=== PATIENT | female | born 1980 | race Caucasian/White ===

== ENCOUNTER 2020-06-22 12:40 | Emergency (ER) | payer MEDICAID ==
[~2020-06-22] VITALS: Ht 165.1 cm; Wt 102.3 kg
[~2020-06-22 12:40] MED LIST: AZIT250T PO; CYCL-1 PO; HYDR-4383 PO; NITR100C6 PO; ONDA4TAB12 PO; OXYC-134 PO; PHEN-786 PO
[2020-06-22 12:44] VITALS: BP 145/117
[2020-06-22] MEDS ORDERED: methylPREDNISolone sod succ 125mg/2ml vial IV ONE (12:50)
[2020-06-22] MEDS ORDERED: albuterol 2.5 MG/3 ML nebule CONTNEB PRN (12:50)
[2020-06-22] MEDS ORDERED: ALBU6.7H9 INH (13:41)
[2020-06-22] MEDS ORDERED: PRED20TA PO (13:41)
[2020-06-22] MEDS ORDERED: ALB0.5UD IH (14:08)
== END 2020-06-22 14:44 | disposition home or self-care (01) ==
LOC: ER 12:40
DX: J45.901 Unspecified asthma with (acute) exacerbation (principal); K21.9 Gastro-esophageal reflux disease without esophagitis; G89.29 Other chronic pain; F41.9 Anxiety disorder, unspecified; Z90.49 Acquired absence of other specified parts of digestive tract; Z90.710 Acquired absence of both cervix and uterus; Z98.890 Other specified postprocedural states; Z56.0 Unemployment, unspecified; Z88.0 Allergy status to penicillin; Z88.8 Allergy status to other drugs, medicaments and biological substances; Z88.1 Allergy status to other antibiotic agents; Z88.5 Allergy status to narcotic agent; Z79.899 Other long term (current) drug therapy
CPT/HCPCS: 94640; 96374; 99283; J2930; 94760; 99285

== ENCOUNTER 2020-09-01 10:13 | Emergency (ER) | payer MEDICAID ==
[~2020-09-01] VITALS: Ht 162.6 cm; Wt 109.1 kg
[~2020-09-01 10:13] MED LIST changes: +ALBU6.7H9 INH
[2020-09-01 10:30] VITALS: BP 137/109
== END 2020-09-01 12:15 | disposition home or self-care (01) ==
LOC: ER 10:13
DX: J02.9 Acute pharyngitis, unspecified (principal); R05 Cough; R50.9 Fever, unspecified; Z20.828 Contact with and (suspected) exposure to other viral communicable diseases; J45.909 Unspecified asthma, uncomplicated; K21.9 Gastro-esophageal reflux disease without esophagitis; G89.29 Other chronic pain; F41.9 Anxiety disorder, unspecified; Z90.710 Acquired absence of both cervix and uterus; Z90.49 Acquired absence of other specified parts of digestive tract; Z56.0 Unemployment, unspecified; Z88.0 Allergy status to penicillin; Z79.2 Long term (current) use of antibiotics; Z79.899 Other long term (current) drug therapy
CPT/HCPCS: 36415; 87081; 87880; 99283

== ENCOUNTER 2020-10-18 21:22 | Emergency (ER) | payer MEDICAID ==
[~2020-10-18] VITALS: Ht 167.6 cm; Wt 118.2 kg
[2020-10-18 21:38] VITALS: BP 196/121
[2020-10-18 22:13] LABS: URINE HCG NEGATIVE (NEG)
[2020-10-18 22:22] LABS: CLARITY,URINE SLIGHTLY CLOUDY (Clear); COLOR,URINE YELLOW (Yellow); GLUCOSE, URINE NEGATIVE (Neg); KETONES,URINE NEGATIVE (Neg); LEUKOCYTE ESTERASE ,URINE MODERATE (Neg); NITRITES, URINE NEGATIVE (Neg); OCCULT BLOOD,URINE MODERATE (Neg); PROTEIN,URINE TRACE mg/dl (Neg); UROBILINOGEN,URINE 0.2 E.U/dL (0.2-1.0)
[2020-10-18 22:44] LABS: UA COLLECTION TYPE CLN CATCH MIDSTREAM
[2020-10-18] MEDS ORDERED: ACYC400T39 PO (23:01)
[2020-10-18] MEDS ORDERED: LIDO30CR23 TOP (23:01)
[2020-10-18] MEDS ORDERED: LIDOcaine/PRILOcaine 5gm cream TP ONE (23:05)
[2020-10-18 23:51] LABS: BACTERIA,URINE 3+ /HPF (Neg); SQUAMOUS EPITHELIAL CELL,UR MODERATE /LPF (FEW); WBC,URINE TNTC /HPF (0-4)
[2020-10-18 23:53] LABS: TRICHOMONAS,URINE FEW /HPF (NEGATIVE); WBC CLUMPS,URINE MODERATE /HPF (NEGATIVE)
[2020-10-19] MEDS ORDERED: NITR100C6 PO (15:55)
== END 2020-10-18 23:16 | disposition home or self-care (01) ==
LOC: ER 21:23
DX: N39.0 Urinary tract infection, site not specified (principal); R10.2 Pelvic and perineal pain; G89.29 Other chronic pain; F41.9 Anxiety disorder, unspecified; J45.909 Unspecified asthma, uncomplicated; K21.9 Gastro-esophageal reflux disease without esophagitis; Z90.49 Acquired absence of other specified parts of digestive tract; Z90.710 Acquired absence of both cervix and uterus; Z56.0 Unemployment, unspecified; Z88.0 Allergy status to penicillin; Z79.2 Long term (current) use of antibiotics; Z79.899 Other long term (current) drug therapy
CPT/HCPCS: 81001; 81025; 87088; 87252; 99283

== ENCOUNTER 2021-03-22 06:04 | Emergency (ER) | payer MEDICAID ==
[~2021-03-22] VITALS: Ht 165.1 cm; Wt 129.7 kg
[~2021-03-22 06:04] MED LIST changes: +LIDO30CR TOP
[2021-03-22 06:08] VITALS: BP 159/95
[2021-03-22] MEDS ORDERED: acetaminophen 325mg tablet PO ONE (06:35)
[2021-03-22] MEDS ORDERED: ibuprofen tablet 400 MG TABLET PO ONE (06:35)
[2021-03-22] MEDS ORDERED: loratadine 10mg tablet PO ONE (06:35)
== END 2021-03-22 07:37 | disposition home or self-care (01) ==
LOC: ER 06:05
DX: J06.9 Acute upper respiratory infection, unspecified (principal); Z20.822 Contact with and (suspected) exposure to COVID-19; F41.9 Anxiety disorder, unspecified; K21.9 Gastro-esophageal reflux disease without esophagitis; J45.909 Unspecified asthma, uncomplicated; Z56.0 Unemployment, unspecified; Z88.0 Allergy status to penicillin; Z79.899 Other long term (current) drug therapy
CPT/HCPCS: 87635; 99284; C9803; 99283

== ENCOUNTER 2023-03-16 19:34 | Emergency (ER) | payer MEDICAID ==
[~2023-03-16] VITALS: Ht 162.6 cm; Wt 138.0 kg
[~2023-03-16 19:34] MED LIST changes: +ALBU6.7H14 INH; -ALBU6.7H9 INH
[2023-03-16 21:32] LABS: CLARITY,URINE SLIGHTLY CLOUDY (Clear); COLOR,URINE ORANGE (Yellow); UA COLLECTION TYPE CLN CATCH MIDSTREAM
[2023-03-16 21:33] VITALS: BP 178/116
[2023-03-16 21:42] LABS: BACTERIA,URINE 1+ /HPF (Neg); MUCUS STRANDS FEW /LPF (Neg); RBC,URINE 50-100 /HPF (0-2); SQUAMOUS EPITHELIAL CELL,UR MANY /LPF (FEW); WBC,URINE 50-100 /HPF (0-4)
[2023-03-16] MEDS ORDERED: sulfamethoxazole/trimethoprim DS (800/160mg) tablet PO ONE (21:55)
[2023-03-16] MEDS ORDERED: FOSFOMYCIN TROMETHAMINE 3 GM PACKET PO ONE (21:55)
[2023-03-16] MEDS ORDERED: SULF1TAB49 PO (21:59)
[2023-03-16] MEDS ORDERED: HYDR-3965 PO (21:59)
[2023-03-16] MEDS ORDERED: HYDROcodone/acetaminophen 5mg/325mg tablet PO ONE (22:00)
== END 2023-03-16 22:16 | disposition home or self-care (01) ==
LOC: ER 19:34
DX: N39.0 Urinary tract infection, site not specified (principal); J45.909 Unspecified asthma, uncomplicated; K21.9 Gastro-esophageal reflux disease without esophagitis; Z88.0 Allergy status to penicillin; Z90.710 Acquired absence of both cervix and uterus; Z90.49 Acquired absence of other specified parts of digestive tract; Z56.0 Unemployment, unspecified
CPT/HCPCS: 81001; 99284

== ENCOUNTER 2023-05-31 17:53 | Emergency (ER) | payer MEDICAID ==
[~2023-05-31] VITALS: Ht 165.1 cm; Wt 150.0 kg
[~2023-05-31 17:53] MED LIST changes: +PHEN-824 PO
[2023-05-31 18:00] VITALS: BP 163/102; PULSE 81; RESP 18; TEMP 97.8; O2SAT 98
[2023-05-31 19:27] LABS: BILIRUBIN,URINE NEGATIVE (Neg); CLARITY,URINE TURBID (Clear); COLOR,URINE YELLOW (Yellow); GLUCOSE, URINE NEGATIVE (Neg); KETONES,URINE NEGATIVE (Neg); LEUKOCYTE ESTERASE ,URINE MODERATE (Neg); NITRITES, URINE NEGATIVE (Neg); OCCULT BLOOD,URINE MODERATE (Neg); PROTEIN,URINE 30 mg/dl (Neg); UROBILINOGEN,URINE 0.2 E.U/dL (0.2-1.0)
[2023-05-31 19:28] LABS: URINE HCG NEGATIVE (NEG)
[2023-05-31 19:33] LABS: UA COLLECTION TYPE CLN CATCH MIDSTREAM
[2023-05-31 19:35] LABS: SQUAMOUS EPITHELIAL CELL,UR MANY /LPF (FEW)
[2023-05-31 19:36] LABS: WBC,URINE TNTC /HPF (0-4)
[2023-05-31 19:38] LABS: BACTERIA,URINE 1+ /HPF (Neg); RBC,URINE 0-2 /HPF (0-2)
[2023-05-31 19:39] LABS: WBC CASTS 0-3 /LPF (NEGATIVE)
[2023-05-31] MEDS ORDERED: CEPH-585 PO (19:58)
== END 2023-05-31 20:06 | disposition home or self-care (01) ==
LOC: ER 17:54
DX: N39.0 Urinary tract infection, site not specified (principal); K21.9 Gastro-esophageal reflux disease without esophagitis; J45.909 Unspecified asthma, uncomplicated; G89.29 Other chronic pain; M54.9 Dorsalgia, unspecified; F41.9 Anxiety disorder, unspecified; Z56.0 Unemployment, unspecified; Z88.0 Allergy status to penicillin; Z88.8 Allergy status to other drugs, medicaments and biological substances; Z79.899 Other long term (current) drug therapy
CPT/HCPCS: 81001; 81025; 87077; 87088; 87186; 99283

== ENCOUNTER 2023-06-12 23:54 | Emergency (ER) | payer MEDICAID ==
[~2023-06-12] VITALS: Ht 165.1 cm; Wt 135.0 kg
[~2023-06-12 23:54] MED LIST changes: +CEPH-585 PO
[2023-06-13 00:04] VITALS: TEMP 98.4
[2023-06-13] MEDS ORDERED: meclizine 12.5mg tablet PO ONE (01:55)
[2023-06-13 01:57] LABS: BASOPHILS % (AUTO) 0.4 % (0-1); EOSINOPHILS # (AUTO) 0.2 X10'3 (0-0.9); EOSINOPHILS % (AUTO) 1.3 % (0-6); HEMOGLOBIN 12.5 g/dl (12.0-16.0); LYMPHOCYTES # (AUTO) 2.3 X10'3 (1.1-4.8); LYMPHOCYTES % (AUTO) 19.5 % (21-51); MEAN CORPUSCULAR HEMOGLOBIN 28.7 PG (27.0-31.0); MEAN CORPUSCULAR HGB CONC 32.1 g/dL (33.0-36.5); MEAN CORPUSCULAR VOLUME 89.2 FL (78-98); MEAN PLATELET VOLUME 7.9 FL (7.4-10.4); MONOCYTES # (AUTO) 0.7 X10'3 (0-0.9); MONOCYTES % (AUTO) 6.4 % (2-12); NEUTROPHILS # (AUTO) 8.3 X10'3 (1.8-7.7); NEUTROPHILS % (AUTO) 72.4 % (42-75); PLATELET COUNT 308 X10'3 (140-440); RED BLOOD COUNT 4.37 X10'6 (4.20-5.60); RED CELL DISTRIBUTION WIDTH 13.5 % (11.5-14.5); WHITE BLOOD COUNT 11.5 X10'3 (4.5-11.0)
[2023-06-13] MEDS ORDERED: MECL-159 PO (03:00)
[2023-06-13 03:11] VITALS: BP 177/96; PULSE 57; RESP 16; O2SAT 99
== END 2023-06-13 03:22 | disposition home or self-care (01) ==
LOC: ER 23:55
DX: R42 Dizziness and giddiness (principal); H69.83 Other specified disorders of Eustachian tube, bilateral; R11.2 Nausea with vomiting, unspecified
CPT/HCPCS: 36415; 85025; 93005; 99284; J8597

== ENCOUNTER 2025-06-26 20:25 | Emergency (ER) | payer SELFPAY ==
[~2025-06-26] VITALS: Ht 162.6 cm; Wt 146.5 kg
[~2025-06-26 20:25] MED LIST changes: -CEPH-585 PO; +MECL-302 PO; +ONDA-243 PO; -ONDA4TAB12 PO
[2025-06-26 20:52] VITALS: BP 168/94; PULSE 75; O2SAT 97
--- NOTE | 2025-06-26 22:05 | Physician Documentation ---
History of Present Illness ~ Chief Complaint: Tooth Problem Stated Complaint: TOOTH PAIN Time Seen by MD: 22:00 Primary Medical Doctor: [place]oacano hartley in clinic HPI This is a 44-year-old female with a known history of poor dentition who presents for evaluation of right-sided upper jaw pain that has been present for a while, and got markedly worse for the last 3-4 days. It is worse when she is eating, drinking, the pain is excruciating. Ibuprofen and Aleve are not helping. Similar to prior dental pain she is worried that this is infected. Denies any fever or chills, denies voice changes, denies difficulty opening her mouth. Denies any other symptoms. Denies any concerns for tobacco, alcohol or illicit substances use Medication Reconciliation Allergies: Coded Allergies: Penicillins (Verified Allergy, Unknown, 07/10/23) Scheduled Albuterol Sulfate (Proventil Hfa), 2 PUFFS INH Q6H Azithromycin (Zithromax), 1 DOSPAK PO UD Hydrocodone/Acetaminophen (Hawley 5-325 Tablet), 1 TABLET PO BID Lidocaine/Prilocaine (Lidocaine-Prilocaine Cream), 1 APPLIC TOP UD Meclizine HCl (Meclizine HCl), 1 TAB PO TID PRN Nitrofurantoin Monohyd/M-Cryst (Macrobid 100 mg Capsule), 1 CAP PO BID Nitrofurantoin Monohyd/M-Cryst (Macrobid 100 mg Capsule), 1 CAP PO Q12H Oxycodone HCl/Acetaminophen (Endocet 5-325 Tablet), 1-2 TAB PO Q4H Phenazopyridine HCl (Pyridium), 1 TAB PO Q8H Scheduled PRN Cyclobenzaprine* (Cyclobenzaprine*), 1 TABLET PO Q8H PRN for muscle spasms ONDANSETRON ODT 4mg tablet (Ondansetron Odt), 1 TABLET PO Q6H PRN for nausea/vomiting Phenazopyridine Hcl (Pyridium tablet), 1 TAB PO Q8H PRN for bladder spasms Past Medical History Past Medical History: Asthma, GERD, Chronic Back Pain, Anxiety Past Surgical History: cholecystectomy, hysterectomy Other Past Surgical History: Bladder repair surgery at age 3 Alcohol Use: Rarely Drug Use: none Lives with: Family Lives In: Home Occupation: unemployed Review of Systems ROS 10 point review of systems was performed and unless noted above in HPI is negative for acute process/complaint. Physical Exam Vital Signs: Temperature: 97.3, Source: Temporal, Heart Rate: 75, Respiratory Rate: 16, BP: 168/94, Pulse Oximetry: 97, Weight: 146.500 Physical Exam Physical examination: GENERAL: Awake, alert, oriented, GCS 15, no apparent distress, non-toxic appearing, answers questions, follows commands appropriately. Examined in triage HEENT: Atraumatic, normocephalic, pupils equal, extraocular muscles intact Active gross movements, sclerae anicteric, mucus membranes moist, no stridor. NECK: Midline, no JVD CARDIOVASCULAR: Good skin perfusion without evidence of pallor, mottling. PULMONARY: Nonlabored, symmetric chest rise, no audible wheezing, no accessory muscle use, no respiratory distress, speaking in full sentences. GASTROINTESTINAL: Not distended. NEUROLOGIC: Lucid with normal mental status. Normal facial symmetry. Moves all extremities symmetrically and with purpose. No truncal ataxia. Speech is fluid without evidence of dysarthria or aphasia, no focal deficits appreciated. EXTREMITIES: Acute deformities Skin: warm, dry PSYCHIATRIC: Normal affect, normal insight, normal concentration. Focused exam: Poor dentition noted. Right upper jaw has a multiple eroded teeth with significant caries. No evidence of abscess. No trismus. No drooling. No hot potato voice. No floor of the mouth elevation no brawny submandibular erythema. No pain with flexion or extension of the neck. There was no evidence of peritonsillar abscess or retropharyngeal abscess. Progress Results/Orders Results/Orders Vital Signs 06/26/25 20:52 Temp 97.3 Pulse 75 Resp 16 B/P (MAP) 168/94 Pulse Ox 97 Medical Decision Making Findings Facility Status: ED Holds, E process The plan was discussed with the patient, who demonstrates clear understanding of the plan and is in agreement with the plan unless otherwise noted in the chart. All questions have been answered, all concerns were addressed unless otherwise documented. I was available throughout their ED stay for frequent reassessment and questions. Differential Diagnoses (considered and possible or likely): [Dental pain, dental infection, dental abscess, less likely osteomyelitis of the jaw, clinically no evidence of Rivas's angina, peritonsillar abscess or retropharyngeal abscess.] ??Differential Diagnoses (considered and unlikely, not requiring evaluation currently): [No airway compromise at this time] MDM Data Please see [facility] for the following: Independent Historians and external Records Review. Historian: [Patient] Independent Historians: ?[None] Medication Management: [Reviewed medication list] Social History and determinants: [Reviewed] Please see the body of the note for the following: Any independent interpretations of ECG, imaging studies. All vitals signs/haemodynamics, ordered tests were independently reviewed and interpreted by myself. Nursing triage complaint and vitals reviewed, additional nursing notes were reviewed as available and I agree unless otherwise noted or documented in contradiction in the chart Vital Signs: Independently reviewed Labs: Independently interpreted Imaging: Independently interpreted Old Medical Records: Independently reviewed, see [facility] for relevant summary and information Additionally notably showing: [Hemodynamically stable] Tests considered but not ordered include: [Hematologic workup and imaging has been considered but does not appear to be necessary given clinical nature of diagnosis] Social Determinants of Health Impact: Patient was evaluated in [facility] [place] healthcare due to below par ratio of patient to medical providers. [] Comorbid Conditions Impacting Present Evaluation and Care/Treatment: [Poor dentition] Management Discussions with other Healthcare Providers: [None] Treatment and Disposition Medication Management (Given or considered): [Pain management, initial dose of antibiotics]. See EMR for details Consideration for Hospitalization/Escalation/Deescalation of Care: Admission for observation has been considered, [however the patient is able to tolerate p.o., their symptoms are controlled, they are able to rely on oral medications, and their chief complaint/diagnosis can be managed on outpatient basis.] ?ED Course:?[There is no trismus, protecting her airway. No clinical deterioration.] ?Shared decision making:?[Patient is hemodynamically stable for discharge home with follow with their primary care provider. [ ] Specific and cautious return precautions provided and discussed with full understanding. Any incidental findings were also discussed and follow up recommendations given. [] All ques tions answered. Patient/family were able to verbalize back return precautions. Patient/family agree to plan. Copies of imaging and laboratory studies were provided.] Code status:?FULL Please see the full Electronic Medical Record for full details of nursing documentation, medications list, other records of complete past medical history and conditions, vital signs, laboratory studies, and any radiologic study interpretations by radiologists. Portions of this note were completed using [employer] dictation software and as a result there may exist minor errors in spelling. I have reviewed elements of past family and social history and agree as included in note. Departure Disposition: HOME / SELF CARE / HOMELESS Impression: Primary Impression: Dental caries Additional Impressions: Toothache Dental abscess Condition: Improved Discharge Instructions: Dental Pain Referrals: NO PRIMARY CARE PROVIDER (PCP) Prescriptions Clindamycin HCl (Clindamycin HCl) 150 Mg Capsule 3 CAP PO Q8H for 10 Days, #90 CAP Prov: HERSON HINSON DO 06/26/25 Naproxen (Naproxen) 375 Mg Tablet 1 TAB PO Q12H for pain for 30 Days, #60 TAB 0 Refills with food Prov: HERSON HINSON DO 06/26/25 Hydrocodone Bit/Acetaminophen 5/325 MG (Hawley 5/325 MG) 5 Mg/325 Mg Tablet 1 TAB PO Q6H PRN for pain, #14 TAB Prov: HERSON HINSON DO 06/26/25 Education Educated: Patient Educated regarding: diagnosis, treatment, prognosis, need for follow up Signature Scribe Signature: No scribe Attestation: Date: Jun 26, 2025 Time: 22:07 This note accurately reflects clinical decisions, work performed by myself, DO SRAVAN Nassar NICHOLAS M DO Jun 26, 2025 22:05
[2025-06-26] MEDS ORDERED: NAPR-1166 PO (22:06)
[2025-06-26] MEDS ORDERED: HYDR-3965 PO (22:06)
[2025-06-26] MEDS ORDERED: CLIN-26 PO (22:06)
[2025-06-26 22:57] VITALS: RESP 18
[2025-06-26] MEDS: HYDROcodone/acetaminophen 5mg/325mg tablet PO ONE (22:57)
[2025-06-26 23:00] VITALS: TEMP 97.3
== END 2025-06-26 23:00 | disposition home or self-care (01) ==
LOC: ER 20:26
DX: K02.9 Dental caries, unspecified (principal); K04.7 Periapical abscess without sinus; K21.9 Gastro-esophageal reflux disease without esophagitis; F41.9 Anxiety disorder, unspecified; J45.909 Unspecified asthma, uncomplicated; Z88.0 Allergy status to penicillin; Z90.49 Acquired absence of other specified parts of digestive tract; Z90.710 Acquired absence of both cervix and uterus
CPT/HCPCS: 99283